=== PATIENT | female | born 1995 | race Caucasian/White ===

== ENCOUNTER 2017-01-17 14:05 | Emergency (ER) | payer OTHER ==
--- NOTE | 2017-01-17 15:41 | UC ---
Skin Complaint HPI - HPI Summary HPI Summary: Pt presents with two flesh colored lesions on her upper lip - first noticed this morning. Worsening facial acne -- Denies new detergents, increase in alcohol or chocolate. Lots of stress at school. - History of Current Complaint Chief Complaint: UCSkin Time Seen by Provider: 01/17/17 15:40 Stated Complaint: SKIN COMPLAINT LIP Hx Obtained From: Patient Hx Last Menstrual Period: 01/15/17 ?: No Onset/Duration: Sudden Onset Skin Exposure Onset/Duration: Hours Ago - This morning Onset Severity: Mild Current Severity: Mild Pain Intensity: 0 Pain Scale Used: 0-10 Numeric Location: Face Character: Raised Aggravating Factor(s): Nothing Alleviating Factor(s): Nothing Associated Signs & Symptoms: Negative: Pallor, Difficulty Breathing, Fever, Throat Tightening, Rash, Drainage, Tenderness, Red Streaks - Allergy/Home Medications Allergies/Adverse Reactions: Allergies Allergy/AdvReac Type Severity Reaction Status Date / Time No Known Allergies Allergy Verified 01/17/17 14:36 Home Medications: Home Medications Omeprazole CAP* [Prilosec CAP* 20 MG] 1 tab PO DAILY 01/17/17 [History Confirmed 01/17/17] Probiotic Product [Align] 4 mg PO DAILY 01/17/17 [History Confirmed 01/17/17] Review of Systems Constitutional: Negative Skin: Other - Two 1-2mm lesions on upper lip. Left>Right facial pimples Eyes: Negative ENT: Negative Respiratory: Negative Cardiovascular: Negative Gastrointestinal: Negative Genitourinary: Negative Musculoskeletal: Negative Neurological: Negative Psychological: Negative Is Patient Immunocompromised?: No All Other Systems Reviewed And Are Negative: Yes PMH/Surg Hx/FS Hx/Imm Hx Previously Healthy: Yes GI/ History: Gastroesophageal Reflux - Surgical History Surgical History: None - Family History Known Family History: Positive: Hypertension - Social History Occupation: Student Lives: Dormitory/Roommates Alcohol Use: Rare Substance Use Type: None Smoking Status (MU): Never Smoked Tobacco - Immunization History Most Recent Influenza Vaccination: no Physical Exam Triage Information Reviewed: Yes Appearance: Well-Appearing, Well-Nourished Vital Signs: Initial Vital Signs Temp 97.7 F 01/17/17 14:32 Pulse 75 01/17/17 14:32 Resp 14 01/17/17 14:32 BP 124/74 01/17/17 14:32 Pulse Ox 98 01/17/17 14:32 Vital Signs Reviewed: Yes Eye Exam: Normal Eyes: Positive: Conjunctiva Clear ENT Exam: Normal ENT: Positive: Normal ENT inspection, Hearing grossly normal, Pharynx normal, TMs normal Dental Exam: Normal Dental: Negative: Abscess @, Cellulitis @ Respiratory Exam: Normal Respiratory: Positive: Chest non-tender, Lungs clear, Normal breath sounds Cardiovascular Exam: Normal Cardiovascular: Positive: RRR, No Murmur Neurological Exam: Normal Neurological: Positive: Alert Psychological Exam: Normal Psychological: Positive: Age Appropriate Behavior Skin: Positive: Other - Two 1-2mm flesh colored lesions on mid upper lip. Non- tender. No discharge. No erythema. No edema. Multiple comedones on b/l cheeks and forehead. No abscess. No lesions >1mm. No ulceration or scab. Course/Dx - Course Course Of Treatment: Pt has been noticing her acne is getting worse. Concerned that the two new appearing lesions on her upper lip were herpetic. Do not appear herpetic in nature, but pt will watch. Will rx benzyl peroxide facial wash for her acne. - Differential Diagnoses - Skin Complaint Differential Diagnoses: Local Allergic Reaction, Scabies, Urticaria, Varicella Zoster - Diagnoses Provider Diagnoses: Adult Acne Discharge - Discharge Plan Condition: Stable Disposition: HOME Prescriptions: Benzoyl Peroxide [Benziq Wash] 5.25 % TOPICAL BEDTIME #1 bottle Patient Education Materials: Acne (ED) Referrals: No Primary Care Phys,NOPCP [Primary Care Provider] - Additional Instructions: If you develop a fever, new symptoms, or your symptoms worsen - please call our office or go to the ED.
== END 2017-01-17 16:00 | disposition home or self-care (01) ==
LOC: UCCORT 14:05
DX: L70.0 Acne vulgaris (principal); K21.9 Gastro-esophageal reflux disease without esophagitis
CPT/HCPCS: 99202; G0463

== ENCOUNTER 2018-01-03 09:54 | Emergency (ER) | payer MEDICAID, OTHER ==
[2018-01-03 11:17] VITALS: BP 137/61
--- NOTE | 2018-01-03 11:38 | UC ---
Throat Pain/Nasal Jian HPI - HPI Summary HPI Summary: sinus pain and pressure x 5 days cold symptoms of 2 weeks , no having pain and pressure in her frontal and maxillary sinuses yellow / green nasal discharge, pnd, no fever, no chills, no cough , - History of Current Complaint Chief Complaint: UCRespiratory Stated Complaint: SINUS HEADACHE COUGH SORE THROAT Time Seen by Provider: 01/03/18 11:29 Hx Obtained From: Patient Hx Last Menstrual Period: 12/12/17 Onset/Duration: Gradual Onset, Lasting Days - 5, Still Present Severity: Moderate Pain Intensity: 8 Cough: None Associated Signs & Symptoms: Positive: Sinus Discomfort, Nasal Discharge. Negative: Dysphagia, FB Sensation, Drooling, Wheezing, Hoarseness, Fever, Vomiting, Rash - Allergies/Home Medications Allergies/Adverse Reactions: Allergies Allergy/AdvReac Type Severity Reaction Status Date / Time No Known Allergies Allergy Verified 01/03/18 11:17 Home Medications: Home Medications Norethindrone AC-Eth Estradiol [Junel 04/16] 1 tab PO DAILY 01/03/18 [History Confirmed 01/03/18] Pseudoephedrine HCl [Sudafed 12 Hour] 3 tab PO ONCE PRN 01/03/18 [History Confirmed 01/03/18] PMH/Surg Hx/FS Hx/Imm Hx Previously Healthy: Yes - Surgical History Surgical History: None - Family History Known Family History: Positive: Hypertension Negative: Diabetes - Social History Alcohol Use: Weekly Substance Use Type: None Smoking Status (MU): Never Smoked Tobacco - Immunization History Most Recent Influenza Vaccination: no Review of Systems Constitutional: Negative Skin: Negative Eyes: Negative ENT: Ear Ache, Nasal Discharge, Sinus Congestion, Sinus Pain/Tenderness Respiratory: Negative Cardiovascular: Negative Gastrointestinal: Negative Genitourinary: Negative Motor: Negative Neurovascular: Negative Is Patient Immunocompromised?: No All Other Systems Reviewed And Are Negative: Yes Physical Exam Triage Information Reviewed: Yes Appearance: Well-Appearing, No Pain Distress, Well-Nourished Vital Signs: Initial Vital Signs Temp 97.4 F 01/03/18 11:11 Pulse 75 01/03/18 11:11 Resp 16 01/03/18 11:11 BP 137/61 01/03/18 11:11 Pulse Ox 98 01/03/18 11:11 Vital Signs Reviewed: Yes Eye Exam: Normal Eyes: Positive: Conjunctiva Clear ENT: Positive: Normal ENT inspection, Hearing grossly normal, Pharynx normal, Nasal congestion, Nasal drainage, TMs normal, Sinus tenderness. Negative: TM bulging, TM dull, TM red, Tonsillar swelling, Tonsillar exudate, Trismus, Muffled voice, Dental tenderness Respiratory: Positive: Chest non-tender, Lungs clear, Normal breath sounds, No respiratory distress Cardiovascular: Positive: RRR, No Murmur, Pulses Normal Skin Exam: Normal Throat Pain/Nasal Course/Dx - Differential Dx/Diagnosis Provider Diagnoses: sinusitis Discharge - Sign-Out/Discharge Documenting (check all that apply): Patient Departure All imaging exams completed and their final reports reviewed: No Studies - Discharge Plan Condition: Stable Disposition: HOME Prescriptions: Amoxicillin/Clavulanate TAB* [Augmentin TAB 875*] 875 mg PO BID #20 tab Patient Education Materials: Sinusitis (ED) Referrals: No Primary Care Phys,NOPCP [Primary Care Provider] - If Needed - Billing Disposition and Condition Condition: STABLE Disposition: Home
== END 2018-01-03 11:42 | disposition home or self-care (01) ==
LOC: UCCORT 09:54
DX: J32.9 Chronic sinusitis, unspecified (principal)
CPT/HCPCS: 99212; G0463

== ENCOUNTER 2018-06-07 09:10 | Emergency (ER) | payer MEDICAID, OTHER ==
[2018-06-07 09:35] VITALS: BP 134/87
--- NOTE | 2018-06-07 09:45 | UC ---
Throat Pain/Nasal Jian HPI - HPI Summary HPI Summary: 22-year-old woman comes in with a chief complaint of chest pain. Patient started with a cough one week ago and upper respiratory tract infections 4-5 days ago with rhinorrhea and nasal congestion and chest congestion. Started have some wheezing. She has a history of asthma but cannot find her inhaler. Yesterday during a coughing fit she had sudden onset of left sided anterior splinting chest pain. She does feel slightly short of breath. She is on control pills she is not a cigarette smoker no family history or personal history of pulmonary embolus or deep venous thrombosis. - History of Current Complaint Chief Complaint: UCRespiratory Stated Complaint: COUGH,CHEST PAIN Time Seen by Provider: 06/07/18 09:44 Hx Last Menstrual Period: "This time last month." Pain Intensity: 6 - Allergies/Home Medications Allergies/Adverse Reactions: Allergies Allergy/AdvReac Type Severity Reaction Status Date / Time No Known Allergies Allergy Verified 06/07/18 09:28 Home Medications: Home Medications Amoxicillin PO (*) [Amoxicillin 500 MG CAP*] 500 mg PO ONCE 06/07/18 [History Confirmed 06/07/18] Norethindrone-E.estradiol-Iron [Junel Fe 04/16 1-20 mg-Mcg] 1 tab PO DAILY [History Confirmed 06/07/18] PMH/Surg Hx/FS Hx/Imm Hx Previously Healthy: Yes Respiratory History: Asthma - Surgical History Surgical History: None - Family History Known Family History: Positive: Hypertension Negative: Diabetes - Social History Alcohol Use: Weekly Substance Use Type: Marijuana Substance Use Comment - Amount & Last Used: two to three times weekly Smoking Status (MU): Never Smoked Tobacco - Immunization History Most Recent Influenza Vaccination: no Review of Systems All Other Systems Reviewed And Are Negative: Yes Constitutional: Positive: Negative Skin: Positive: Negative Eyes: Positive: Negative ENT: Positive: Nasal Discharge, Sinus Congestion Respiratory: Positive: Shortness Of Breath, Cough, Other - WHEEZING Cardiovascular: Positive: Chest Pain Gastrointestinal: Positive: Negative Motor: Positive: Negative Neurovascular: Positive: Negative Musculoskeletal: Positive: Negative Neurological: Positive: Negative Psychological: Positive: Negative Is Patient Immunocompromised?: No Physical Exam Triage Information Reviewed: Yes Appearance: No Pain Distress, Well-Nourished, Ill-Appearing - MILD Vital Signs: Initial Vital Signs Temp 97.9 F 06/07/18 09:29 Pulse 72 06/07/18 09:29 Resp 16 06/07/18 09:29 BP 134/87 06/07/18 09:29 Pulse Ox 100 06/07/18 09:29 Vital Signs Reviewed: Yes Eye Exam: Normal Eyes: Positive: Conjunctiva Clear ENT: Positive: Pharyngeal erythema, Nasal congestion, Nasal drainage, TMs normal Neck exam: Normal Neck: Positive: Supple Respiratory: Positive: Chest non-tender, Normal breath sounds, No respiratory distress, No accessory muscle use Cardiovascular: Positive: RRR Musculoskeletal Exam: Normal Musculoskeletal: Positive: Strength Intact, ROM Intact, No Edema, Other: - NO CALF TENDERNESS Neurological Exam: Normal Neurological: Positive: Alert, Muscle Tone Normal Psychological Exam: Normal Psychological: Positive: Age Appropriate Behavior Skin Exam: Normal Diagnostics - EKG Cardiac Rate: NL - AT 0918 Cardiac Rhythm: Sinus: Normal - 67 BPM Ectopy: None ST Segment: Normal Throat Pain/Nasal Course/Dx - Course Course Of Treatment: Patient Name: NOELLE MILLS Medical Record#: [id number]. Ordering Physician: Sudheer Maciel MD Acct.#: [id number]. : 1995 Age: 22 Sex: F Location: [facility]. Exam Date: 950 ADM Status: PRE ER. Order Information: CHEST PA LAT 2 VWS. Accession Number: [id number]. CPT: 90334. INDICATION: Splinting left chest pain and cough. COMPARISON: There are no relevant prior studies available for comparison. TECHNIQUE: Dual-energy PA and lateral views of the chest were obtained. FINDINGS: The heart is within normal limits in size. Mediastinal and hilar contours. appear within normal limits. The lungs are clear. No pleural effusion or pneumothorax is seen. IMPRESSION: NO EVIDENCE FOR ACTIVE CARDIOPULMONARY DISEASE. . <Electronically signed by Colten Grant MD in OV> 06/07/18 1003. I discussed the chest x-ray EKG and urine results with the patient. Patient feels less short of breath after albuterol nebulizer in clinic. Also chest pain is less after ibuprofen. Patient is on control pills. She been having some cramping in her calves that comes and goes. On examination her calves are soft without any cords. We discussed the possibility of pulmonary embolus and deep venous thrombosis. Given her pain started with a cough is most likely a pleuritic or chest wall cause of chest pain. We discussed further evaluation for potential for blood clots or DVTs pulmonary embolus and at this time patient feels comfortable not getting an ultrasound to check for DVTs. We did let her know that if she did not improve her got worse she needed to go the emergency department. Also let her know how you diagnosis of pulmonary embolus as with a CT scan with IV contrast in the emergency department. Overall feel the possibility of PE or DVT to be extremely low. We discussed viral versus bacterial infections and the role of antibiotics and the patient prefers to be on antibiotics at this time. Follow-up primary care doctor reevaluate sooner if worse. - Differential Dx/Diagnosis Provider Diagnosis: Chest pain, Sinusitis, Bronchitis with bronchospasm Discharge - Sign-Out/Discharge Documenting (check all that apply): Patient Departure All imaging exams completed and their final reports reviewed: Yes - Discharge Plan Condition: Stable Disposition: HOME Prescriptions: Albuterol HFA INHALER* [Ventolin HFA Inhaler*] 2 puff INH Q4H PRN #1 mdi PRN Reason: Wheezing Amoxicillin PO (*) [Amoxicillin 875 MG (*)] 875 mg PO BID #20 tab Benzonatate CAP* [Tessalon 100 MG CAP*] 100 mg PO TID PRN #20 cap PRN Reason: Cough Patient Education Materials: Chest Pain (ED), Acute Bronchitis (ED), Bronchospasm (ED), Sinusitis (ED) Referrals: [facility] [Outside] [facility] [Outside] Additional Instructions: FOLLOW UP WITH YOUR DOCTOR IF NOT COMPLETELY IMPROVED. GET RECHECKED FOR ANY WORSENING OF YOUR CONDITION OR QUESTIONS OR CONCERNS. - Billing Disposition and Condition Condition: STABLE Disposition: Home
[2018-06-07] MEDS ORDERED: Ibuprofen TAB* 600 MG PO ONE (09:52)
[2018-06-07] MEDS: Albuterol 2.5 MG/3 ML NEB.SOL* (0.083%) INH ONE ×2 (10:02→10:04)
== END 2018-06-07 10:55 | disposition home or self-care (01) ==
LOC: UCCORT 09:10
DX: R07.89 Other chest pain (principal); J32.9 Chronic sinusitis, unspecified; J40 Bronchitis, not specified as acute or chronic; J98.01 Acute bronchospasm
CPT/HCPCS: 71046; 81003; 84702; 87086; 93005; 99212; A9270-GY; G0463

== ENCOUNTER 2018-06-20 11:12 | Emergency (ER) | payer OTHER ==
[2018-06-20 12:42] VITALS: BP 140/77
--- NOTE | 2018-06-20 12:59 | UC ---
Ear Complaint HPI - HPI Summary HPI Summary: right ear x 3 days pain is 6 out of 10 , no radiation , better with Tylenol , recent hx of sinus infection , finished abx 3 days ago , + cough, no fever, no chills - History of Current Complaint Chief Complaint: UCRespiratory Stated Complaint: MADALYN LAT EAR PAIN,SINUS CONCERN Time Seen by Provider: 06/20/18 12:40 Hx Obtained From: Patient Hx Last Menstrual Period: 06/07/18 Onset/Duration: Gradual Onset, Lasting Days - 3, Still Present Severity Initially: Moderate Severity Currently: Moderate Pain Intensity: 5 Aggravating Factors: Nothing Alleviating Factors: Nothing Associated Signs/Symptoms: Positive: URI Symptoms. Negative: Discharge, Hearing Loss, Foreign Body Sensation, Trauma to Ear, Swelling @ - Allergies/Home Medications Allergies/Adverse Reactions: Allergies Allergy/AdvReac Type Severity Reaction Status Date / Time seasonal Allergy sinus Uncoded 06/20/18 12:35 infection Home Medications: Home Medications D-Methorphan/PE/Acetaminophen [Sudafed PE Pressure+Pain+Cough] 2 each PO DAILY PRN 06/20/18 [History Confirmed 06/20/18] PMH/Surg Hx/FS Hx/Imm Hx Previously Healthy: Yes - Surgical History Surgical History: None - Family History Known Family History: Positive: Hypertension Negative: Diabetes - Social History Alcohol Use: Weekly Alcohol Amount: 10 Substance Use Type: Marijuana Substance Use Comment - Amount & Last Used: two to three times weekly-last was Smoking Status (MU): Never Smoked Tobacco - Immunization History Most Recent Influenza Vaccination: no Review of Systems All Other Systems Reviewed And Are Negative: Yes Constitutional: Positive: Negative Skin: Positive: Negative Eyes: Positive: Negative ENT: Positive: Ear Ache Respiratory: Positive: Negative Is Patient Immunocompromised?: No Physical Exam Triage Information Reviewed: Yes Appearance: Well-Appearing, No Pain Distress, Well-Nourished Vital Signs: Initial Vital Signs Temp 97.9 F 06/20/18 12:36 Pulse 95 06/20/18 12:36 Resp 18 06/20/18 12:36 BP 140/77 06/20/18 12:36 Pulse Ox 100 06/20/18 12:36 Vital Signs Reviewed: Yes Eye Exam: Normal Eyes: Positive: Conjunctiva Clear ENT: Positive: Normal ENT inspection, Hearing grossly normal, Pharynx normal, TMs normal. Negative: Pharyngeal erythema, Nasal congestion, Nasal drainage, TM bulging, TM dull, TM red Neck: Positive: Supple, Nontender, No Lymphadenopathy Respiratory: Positive: Chest non-tender, Lungs clear, Normal breath sounds Cardiovascular: Positive: RRR, No Murmur, Pulses Normal Skin Exam: Normal Ear Complaint Course/Dx - Differential Dx/Diagnosis Provider Diagnosis: Otalgia Discharge - Sign-Out/Discharge Documenting (check all that apply): Patient Departure All imaging exams completed and their final reports reviewed: No Studies - Discharge Plan Condition: Stable Disposition: HOME Prescriptions: Fluticasone NASAL SPRAY 50MCG* [Flonase NASAL SPRAY 50MCG*] 2 spray BOTH NARES DAILY #1 btl Patient Education Materials: Earache (ED) Referrals: No Primary Care Phys,NOPCP [Primary Care Provider] - If Needed - Billing Disposition and Condition Condition: STABLE Disposition: Home
== END 2018-06-20 13:02 | disposition home or self-care (01) ==
LOC: UCCORT 11:12
DX: H92.03 Otalgia, bilateral (principal); Z91.09 Other allergy status, other than to drugs and biological substances
CPT/HCPCS: 99212; G0463